=== PATIENT | male | born 1930 | race Caucasian/White ===

== ENCOUNTER 2016-07-07 12:33 | Emergency (ER) | payer OTHER, BC ==
[2016-07-07 12:45] VITALS: TEMP 98.6; BMI 33.9
[2016-07-07] MEDS ORDERED: ONDANSETRON 4 MG/2 ML VIAL IVPUSH ONE (13:25)
--- NOTE | 2016-07-07 13:25 | PDOC ---
History of Present Illness <Tommie Allison - Last Filed: 07/07/16 15:18> - General History Source: Patient Exam Limitations: No Limitations - History of Present Illness Initial Comments: 85 yo M history CKD presents with N/V/D x1 day. He states that he was vomiting overnight, which has resolved, but now having loose stools. He took "Emetrol" for the vomiting, which helped. He took imodium and pepto bismol today, and since then his stools are dark. He has had less diarrhea, but is still feeling unwell. No fever, abdominal pain, recent illness. <Peyton Bernard - Last Filed: 07/07/16 16:02> - General Chief Complaint: Vomiting/Diarrhea Stated Complaint: DIARRHEA, LOSS OF APPETITE Time Seen by Provider: 07/07/16 13:18 Past History <Tommie Allison - Last Filed: 07/07/16 15:18> - Past Medical History Anemia: No Asthma: No Cancer: No Cardiac Disorders: Yes (CAD,) CVA: No COPD: No CHF: No Dementia: No Diabetes: Yes GI Disorders: Yes (DIVERTICULAR DISEASE) Disorders: Yes (BLADDER STONE) HTN: Yes Hypercholesterolemia: Yes Liver Disease: No Seizures: No Thyroid Disease: No - Surgical History Abdominal Surgery: No Appendectomy: No Cardiac Surgery: Yes (ANGIOPLASTY WITH 1) Cholecystectomy: No Lung Surgery: No Neurologic Surgery: No Orthopedic Surgery: Yes (left hip replacement,right quadracep femorous) - Psycho/Social/Smoking Cessation Hx Suicidal Ideation: No Smoking History: Never smoked Have you smoked in the past 12 months: No If you are a former smoker, when did you quit?: 25YRS Information on smoking cessation initiated: No Hx Alcohol Use: Yes (occassional) Drug/Substance Use Hx: No Substance Use Type: Alcohol Hx Substance Use Treatment: No <Peyton Bernard - Last Filed: 07/07/16 16:02> - Past Medical History Allergies/Adverse Reactions: Allergies Allergy/AdvReac Type Severity Reaction Status Date / Time No Known Allergies Allergy Verified 07/07/16 12:45 Home Medications: Ambulatory Orders Apixaban [Eliquis -] 2.5 mg PO BID 07/07/16 Atenolol [Tenormin -] 25 mg PO DAILY 07/07/16 Cholecalciferol (Vitamin D3) [Vitamin D3 -] 1,000 unit PO TID 07/07/16 Clopidogrel Bisulfate [Plavix -] 75 mg PO DAILY 07/07/16 Ezetimibe [Zetia -] 10 mg PO DAILY 07/07/16 Famotidine [Pepcid] 20 mg PO DAILY 07/07/16 Fenofibrate Nanocrystallized [Fenofibrate] 145 mg PO DAILY 07/07/16 Ferrous Sulfate 325 mg PO DAILY 07/07/16 Folic Acid - 1 mg PO DAILY 07/07/16 Furosemide [Lasix -] 20 mg PO DAILY 07/07/16 Glipizide [Glucotrol -] 10 mg PO BID 07/07/16 Ketoconazole 2% Cream [Nizoral 2% Cream -] 1 applic TP DAILY 07/07/16 L.acidoph & Paracasei,B.lactis [Probiotic] 1 each PO DAILY 07/07/16 Losartan Potassium [Cozaar -] 12.5 mg PO DAILY 07/07/16 Multivitamins [Tab-A-Vit -] 1 tab PO DAILY 07/07/16 Nitroglycerin [Nitrostat] 0.4 mg SL PRN 07/07/16 [place]-3 Acid Ethyl Esters [Lovaza -] 4 gm PO DAILY 07/07/16 Rosuvastatin [Crestor -] 5 mg PO HS 07/07/16 Sitagliptin Phosphate [Januvia -] 25 mg PO ONCE 07/07/16 Review of Systems - Review of Systems Able to Perform ROS?: Yes Comments:: GENERAL/CONSTITUTIONAL: No fever or chills. No weakness. HEAD, EYES, EARS, NOSE AND THROAT: No change in vision. No ear pain or discharge. No sore throat. CARDIOVASCULAR: No chest pain or shortness of breath. RESPIRATORY: No cough, wheezing, or hemoptysis. GASTROINTESTINAL: +Vomiting (resolved). +Diarrhea. No constipation. GENITOURINARY: No dysuria, frequency, or change in urination. MUSCULOSKELETAL: No joint or muscle swelling or pain. No neck or back pain. SKIN: No rash NEUROLOGIC: No headache, vertigo, loss of consciousness, or change in strength/ sensation. ENDOCRINE: No increased thirst. No abnormal weight change. HEMATOLOGIC/LYMPHATIC: No anemia, easy bleeding, or history of blood clots. ALLERGIC/IMMUNOLOGIC: No hives or skin allergy. <Peyton Bernard - Last Filed: 07/07/16 16:02> *Physical Exam - Vital Signs Last Vital Signs Temp Pulse Resp BP Pulse Ox 98.6 F 82 18 116/58 97 07/07/16 12:42 07/07/16 12:42 07/07/16 12:42 07/07/16 12:42 07/07/16 12:42 <Tommie Allisone - Last Filed: 07/07/16 15:18> - Vital Signs Last Vital Signs Temp Pulse Resp BP Pulse Ox 98.6 F 82 18 116/58 97 07/07/16 12:42 07/07/16 12:42 07/07/16 12:42 07/07/16 12:42 07/07/16 12:42 - Physical Exam Comments: GENERAL: Awake, alert, and fully oriented, in no acute distress HEAD: No signs of trauma EYES: PERRLA, EOMI, sclera anicteric, conjunctiva clear ENT: Auricles normal inspection, hearing grossly normal, nares patent, oropharynx clear without exudates. Dry mucosa. NECK: Normal ROM, supple, no lymphadenopathy, JVD, or masses LUNGS: Breath sounds equal, clear to auscultation bilaterally. No wheezes, and no crackles HEART: Regular rate and rhythm, normal S1 and S2, no murmurs, rubs or gallops ABDOMEN: Soft, nontender, hyperactive bowel sounds. No guarding, no rebound. No masses EXTREMITIES: Normal range of motion, no edema. No clubbing or cyanosis. No cords, erythema, or tenderness NEUROLOGICAL: Cranial nerves II through XII grossly intact. Normal speech, normal gait SKIN: Warm, Dry, normal turgor, no rashes or lesions noted. <Peyton Bernard - Last Filed: 07/07/16 16:02> ED Treatment Course - LABORATORY CBC & Chemistry Diagram: 07/07/16 13:40 07/07/16 13:40 - ADDITIONAL ORDERS Additional order review: Laboratory Results 07/07/16 13:40 Sodium 141 Potassium 4.5 Chloride 105 Carbon Dioxide 24 Anion Gap 12 BUN 58 H Creatinine 2.1 H D Creat Clearance w eGFR 30.24 Random Glucose 158 H Calcium 8.5 Total Bilirubin 0.3 D AST 21 D ALT 19 Alkaline Phosphatase 23 L Total Protein 6.7 Albumin 3.1 L Lipase 113 07/07/16 13:40 RBC 4.18 MCV 91.7 MCHC 32.6 RDW 14.2 MPV 8.7 Neutrophils % Y Lymphocytes % Y - Medications Given in the ED: ED Medications Discontinued Medications Generic Name Dose Route Start Last Admin Trade Name Jeny PRN Reason Stop Dose Admin Sodium Chloride 500 mls @ 500 mls/hr 07/07/16 13:26 07/07/16 13:59 Normal Saline - IV 07/07/16 14:25 500 mls/hr ASDIR STA Administration Ondansetron HCl 4 mg 07/07/16 13:25 07/07/16 13:59 Zofran Injection IVPUSH 07/07/16 13:26 4 mg ONCE ONE Administration <Tommie Allison - Last Filed: 07/07/16 15:18> - LABORATORY CBC & Chemistry Diagram: 07/07/16 13:40 07/07/16 13:40 <Peyton Bernard - Last Filed: 07/07/16 16:02> Medical Decision Making - Medical Decision Making 07/07/16 15:10 Dr. Mariah Amaral was called regarding the patient at 3:09pm Dr. Rivera was consulted regarding the patient at 3:12pm [phone] <Tommie Allison - Last Filed: 07/07/16 15:18> - Medical Decision Making Pt improved with IV fluids. I discussed his CMP with Dr. Bautista, and according to her charts at the office, his last creatinine was 2.0. We discussed whether he required admission or not- he reports feeling better and would like to go home. On my assessment he is well-appearing with no signs of acute abdomen. She recommended that he skip lasix today and tomorrow, follow up with her in the office. <Peyton Bernard - Last Filed: 07/07/16 16:02> *DC/Admit/Observation/Transfer <Tommie Allison - Last Filed: 07/07/16 15:18> - Discharge Dispostion Admit: No <Peyton Bernard - Last Filed: 07/07/16 16:02> Diagnosis at time of Disposition: Dehydration, Vomiting and diarrhea, Chronic kidney disease - Discharge Dispostion Disposition: HOME Condition at time of disposition: Improved - Referrals Referrals: Mariah Bautista MD [Primary Care Provider] - - Patient Instructions Printed Discharge Instructions: DI for Diarrhea and Traveler's Diarrhea -- Adult, DI for Vomiting -- Adult Additional Instructions: SKIP LASIX TODAY AND TOMORROW. FOLLOW UP WITH DR. BAUTISTA THIS WEEK.
[2016-07-07] MEDS ORDERED: SODIUM CHLORIDE 500 ML IV STA (13:26)
[2016-07-07] MEDS ORDERED: ONDANSETRON 4 MG/2 ML VIAL ONE (13:53)
[2016-07-07 13:54] LABS: MCH 29.9 pg (25.7-33.7); MCHC 32.6 g/dl (32.0-35.9); MEAN CELL VOLUME 91.7 fl (80-96); MEAN PLT VOLUME 8.7 fl (7.5-11.1); PLATELET COUNT 206 K/MM3 (134-434); RDW 14.2 % (11.9-15.9); WHITE BLOOD COUNT 5.2 K/mm3 (4.0-10.0)
[2016-07-07 14:20] LABS: ALBUMIN 3.1 g/dl (3.4-5.0); BILIRUBIN,TOTAL 0.3 mg/dL (0.2-1.0); CALCIUM 8.5 mg/dL (8.5-10.1); CREATININE 2.1 mg/dL (0.7-1.3); TOT PROT 6.7 g/dl (6.4-8.2)
[2016-07-07 15:15] LABS: PLATELET ESTIMATE ADEQUATE (NORMAL)
[2016-07-07 15:24] VITALS: BP 107/60; PULSE 81
== END 2016-07-07 15:29 | disposition home or self-care (01) ==
LOC: JER 12:33
PROC: 3E0337Z Introduction of Electrolytic and Water Balance Substance into Peripheral Vein, Percutaneous Approach (ICD-10-PCS; principal; 2016-07-07)
PROC: 3E033GC Introduction of Other Therapeutic Substance into Peripheral Vein, Percutaneous Approach (ICD-10-PCS; 2016-07-07)
DX: E86.0 Dehydration (principal); I13.10 Hypertensive heart and chronic kidney disease without heart failure, with stage 1 through stage 4 chronic kidney disease, or unspecified chronic kidney disease; N18.9 Chronic kidney disease, unspecified; Z95.5 Presence of coronary angioplasty implant and graft; E11.9 Type 2 diabetes mellitus without complications; Z79.84 Long term (current) use of oral hypoglycemic drugs; E78.00 Pure hypercholesterolemia, unspecified
CPT/HCPCS: 36415; 80053; 83690; 85025; 96361; 96374; 99283-25

== ENCOUNTER 2018-07-21 21:44 | Observation (INO) | payer OTHER, BC ==
--- NOTE | 2018-07-21 21:56 | PDOC ---
Rapid Medical Evaluation Medical Evaluation: Allergies Allergy/AdvReac Type Severity Reaction Status Date / Time No Known Allergies Allergy Verified 07/07/16 12:45 I have performed a brief in-person evaluation of this patient. The patient presents with a chief complaint of: Tripped over hole in road, falling on the left side; no head/neck trauma; is on Eliquis for Afib; no LOC; mentions feeling a bit lightheaded post fall Pertinent physical exam findings: +abrasion to dorsal surface of L hand, FROM of LUE and RUE; able to walk using his cane I have ordered the following: Basic labs, EKG The patient will proceed to the ED for further evaluation. 07/21/18 21:50 Discharge Disposition - Referrals Referrals: Mariah Bautista MD [Primary Care Provider] - - Patient Instructions - Post Discharge Activity
--- NOTE | 2018-07-22 02:36 | PDOC ---
History of Present Illness - General Chief Complaint: Injury Stated Complaint: FELL HBP HIGH Time Seen by Provider: 07/21/18 21:49 - History of Present Illness Initial Comments: The patient is an 87M w/ a history of CAD s/p stent, A-fib (eliquis), T2DM, HTN , HLD, COPD who presents for evaluation s/p mechanical fall from standing. The patient states that he was walking down his driveway when he fell 2/2 uneven footing. The patient fell onto his left side but denies hitting his head and denies LOC. The patient endorses left hand pain and skin tear. He also reports a left knee abrasion and left elbow abrasion. All wound were treated prior to arrival by his daughter who is a nurse. Patient ambulated immediately after the fall. Pt also reports substernal chest pressure, non-radiating, began after his fall, and has improved but not resolved upon arrival. Denies fevers/chills, [place], vision changes, SOB, abdominal pain, N/V/C/D, dysuria , or changes in sensation 07/22/18 04:57 Past History - Past Medical History Allergies/Adverse Reactions: Allergies Allergy/AdvReac Type Severity Reaction Status Date / Time No Known Allergies Allergy Verified 07/21/18 21:53 Home Medications: Ambulatory Orders Apixaban [Eliquis -] 2.5 mg PO BID 07/07/16 Atenolol [Tenormin -] 25 mg PO DAILY 07/07/16 Cholecalciferol (Vitamin D3) [Vitamin D3 -] 1,000 unit PO TID 07/07/16 Clopidogrel Bisulfate [Plavix -] 75 mg PO DAILY 07/07/16 Ezetimibe [Zetia -] 10 mg PO DAILY 07/07/16 Famotidine [Pepcid] 20 mg PO DAILY 07/07/16 Fenofibrate Nanocrystallized [Fenofibrate] 145 mg PO DAILY 07/07/16 Ferrous Sulfate 325 mg PO DAILY 07/07/16 Folic Acid - 1 mg PO DAILY 07/07/16 Furosemide [Lasix -] 20 mg PO DAILY 07/07/16 Glipizide [Glucotrol -] 10 mg PO BID 07/07/16 Ketoconazole 2% Cream [Nizoral 2% Cream -] 1 applic TP DAILY 07/07/16 L.acidoph,Paracasei, B.lactis [Probiotic] 1 each PO DAILY 07/07/16 Losartan Potassium [Cozaar -] 12.5 mg PO DAILY 07/07/16 Multivitamins [Tab-A-Vit -] 1 tab PO DAILY 07/07/16 Nitroglycerin [Nitrostat] 0.4 mg SL PRN 07/07/16 [place]-3 Acid Ethyl Esters [Lovaza -] 4 gm PO DAILY 07/07/16 Rosuvastatin [Crestor -] 5 mg PO HS 07/07/16 Sitagliptin Phosphate [Januvia -] 25 mg PO ONCE 07/07/16 Anemia: No Asthma: No Cancer: No Cardiac Disorders: Yes (CAD,A-FIB) CVA: No COPD: No CHF: No Dementia: No Diabetes: Yes GI Disorders: Yes (DIVERTICULAR DISEASE) Disorders: Yes (BLADDER STONE) HTN: Yes Hypercholesterolemia: Yes Liver Disease: No Seizures: No Thyroid Disease: No - Surgical History Abdominal Surgery: No Appendectomy: No Cardiac Surgery: Yes (ANGIOPLASTY WITH 1) Cholecystectomy: No Lung Surgery: No Neurologic Surgery: No Orthopedic Surgery: Yes (left hip replacement,right quadracep femorous) - Suicide/Smoking/Psychosocial Hx Smoking History: Never smoked Have you smoked in the past 12 months: No If you are a former smoker, when did you quit?: 25YRS Hx Alcohol Use: Yes (occassional) Drug/Substance Use Hx: No Substance Use Type: Alcohol Hx Substance Use Treatment: No Review of Systems - Review of Systems Able to Perform ROS?: Yes Comments:: GENERAL/CONSTITUTIONAL: No fever or chills. No weakness HEAD, EYES, EARS, NOSE AND THROAT: No change in vision. No ear pain or discharge. No sore throat CARDIOVASCULAR: No shortness of breath RESPIRATORY: Denies cough, hemoptysis GASTROINTESTINAL: No nausea, vomiting, diarrhea or constipation GENITOURINARY: No dysuria, frequency, or change in urination MUSCULOSKELETAL: per HPI SKIN: No rash NEUROLOGIC: No headache, vertigo, loss of consciousness, or change in strength/ sensation ENDOCRINE: No increased thirst. No abnormal weight change HEMATOLOGIC/LYMPHATIC: No anemia, easy bleeding, or history of blood clots ALLERGIC/IMMUNOLOGIC: No hives or skin allergy 07/22/18 05:02 Is the patient limited [place] proficient: No *Physical Exam - Vital Signs Last Vital Signs Temp Pulse Resp BP Pulse Ox 98.5 F 60 18 151/61 98 07/21/18 21:50 07/21/18 21:50 07/21/18 21:50 07/21/18 21:50 07/21/18 21:50 - Physical Exam Comments: GENERAL: Awake, alert, and fully oriented, in no acute distress HEAD: No signs of trauma, normocephalic, atraumatic EYES: PERRLA, EOMI, sclera anicteric, conjunctiva clear ENT: Hearing grossly normal, nares patent, oropharynx clear without exudates. Moist mucosa LUNGS: No distress, speaks full sentences, clear to auscultation bilaterally HEART: Regular rate and rhythm, normal S1 and S2, no murmurs appreciated, peripheral pulses normal and equal bilaterally ABDOMEN: Soft, nontender, normoactive bowel sounds. No guarding, no rebound EXTREMITIES : L volar hand abrasion and skin tear over 5th metacarpal, L lateral knee abrasion w/o underlying hematoma and no joint effusion, L lateral elbow abrasion w/o underlying hematoma. No knee or elbow laxity. No obvious deformity. FROM in all joints. NEUROLOGICAL: Cranial nerves II through XII grossly intact. Normal speech, no focal sensorimotor deficits SKIN: Warm, Dry 07/22/18 05:03 Moderate Sedation - Procedure Monitoring Vital Signs: Procedure Monitoring Vital Signs Temperature 98.5 F 07/21/18 21:50 Pulse Rate 60 07/21/18 21:50 Respiratory Rate 18 07/21/18 21:50 Blood Pressure 151/61 07/21/18 21:50 O2 Sat by Pulse Oximetry (%) 98 07/21/18 21:50 ED Treatment Course - LABORATORY CBC & Chemistry Diagram: 07/22/18 02:33 07/22/18 02:33 - RADIOLOGY Radiology Studies Ordered: Category Date Time Status ANKLE & FOOT-LEFT* [RAD] Stat Radiology 07/22/18 01:38 Ordered ELBOW-LEFT [RAD] Stat Radiology 07/22/18 01:37 Ordered KNEE 3 POS-LEFT [RAD] Stat Radiology 07/22/18 01:37 Ordered WRIST W/HAND-LEFT* [RAD] Stat Radiology 07/22/18 01:37 Ordered Medical Decision Making - Medical Decision Making The patient is a 87M w/ a history of CAD s/p stent (plavix/eliquis), s/p pacemaker, T2DM, HTN, HLD, and COPD who presents for evaluation s/p mechanical fall from standing. Additionally, the patient reports non-radiating substernal chest pressure. Ddx: injury 2/2 trauma, ACS r/o ED Course Plain films CMP, CBC, Trop I ECG, CXR 07/22/18 04:06 ECG w/ paced rhythm at 109 Initial Trop I neg No leukocytosis No anemia Cr elevated 2.4, near baseline LFTs wnl Plan for admission for ACS r/o Patient admitted to obs for ACS r/o Imaging pending Dispo: admit 07/22/18 05:06 *DC/Admit/Observation/Transfer Diagnosis at time of Disposition: ACS (acute coronary syndrome) Fall Qualifiers: Encounter type: initial encounter Qualified Code(s): W19.XXXA - Unspecified fall, initial encounter - Referrals Referrals: Mariah Bautista MD [Primary Care Provider] - - Patient Instructions - Post Discharge Activity
[2018-07-22 02:45] LABS: BASO % 0.5 % (0-2.0); HEMATOCRIT 35.1 % (35.4-49); HEMOGLOBIN 12.1 GM/dL (11.7-16.9); LYMPH % 19.4 % (8-40); MCH 31.4 pg (25.7-33.7); MCHC 34.5 g/dl (32.0-35.9); MEAN CELL VOLUME 91.1 fl (80-96); MONO % 10.9 % (3.8-10.2); NEUT % 65.2 % (42.8-82.8); PLATELET COUNT 244 K/MM3 (134-434); RBC 3.85 M/mm3 (4.00-5.60); RDW 14.1 % (11.9-15.9); WHITE BLOOD COUNT 6.3 K/mm3 (4.0-10.0)
[2018-07-22 03:09] LABS: ALBUMIN 3.4 g/dl (3.4-5.0); ALK PHOS 31 U/L (45-117); ANION GAP 5 MMOL/L (8-16); BILIRUBIN,TOTAL 0.2 mg/dL (0.2-1); BLOOD UREA NITROGEN 74 mg/dL (7-18); CALCIUM 10.2 mg/dL (8.5-10.1); CHLORIDE 105 mmol/L (98-107); CO2 31 mmol/L (21-32); CREATININE 2.4 mg/dL (0.55-1.3); GLUCOSE,RANDOM 129 mg/dL (74-106); POTASSIUM 4.8 mmol/L (3.5-5.1); SGOT/AST 15 U/L (15-37); SGPT/ALT 22 U/L (13-61); SODIUM 141 mmol/L (136-145); TOT PROT 6.9 g/dl (6.4-8.2)
--- NOTE | 2018-07-22 03:46 | PDOC ---
Attending Attestation - HPI HPI: 07/22/18 03:46 The patient is a 87 year old male, with a significant past medical history of CAD (s/p stenting and pacemaker implantation), Afib, DM, HTN, HLD, who presents to the emergency department s/p mechanical fall. As per patient, he was walking to the car when he tripped and fell onto his left side (accident was recorded on home surveillance). The patient endorses diffuse abrasions to his left pérez and left arm, without pain or swelling. Patient was able to ambulate s/p fall. Patient tested his blood pressure after the fall and noted it being elevated, prompting her arrival. While in the waiting room, patient notes an episode of chest tightness which has since resolved. He denies any LOC or trauma to the head/neck. He denies any recent fevers, chills, headache or dizziness. He denies any recent nausea, vomit, diarrhea or constipation. He denies any recent palpitation, diaphoresis, or shortness of breath. He denies any recent dysuria, frequency, urgency or hematuria. Allergies: NKA Primary Care Physician: Dr. Bautista <Eduarda Miller - Last Filed: 07/22/18 03:47> - Resident Resident Name: Guy Jackson - ED Attending Attestation I have performed the following: I have examined & evaluated the patient, The case was reviewed & discussed with the resident, I agree w/resident's findings & plan - Physicial Exam PE: Agree with resident exam 07/22/18 04:14 - Medical Decision Making 07/22/18 04:18 87-year-old male status post mechanical fall witnessed by security surveillance Patient admits to chest tightness while waiting to be seen in the emergency department EKG shows a paced rhythm Due to history of coronary artery disease, patient's age and an elevated blood pressure at home he will be held for observation and serial enzymes He has mild abrasions with no head trauma, tenderness to the chest abdomen or pelvis At this time imaging is not indicated Impression mechanical fall Chest tightness CAD multiple abrasions on <Meg Rose - Last Filed: 07/22/18 04:21> Attestations - Attestations 07/22/18 03:47 Documentation prepared by Nirvannie Goberdan, acting as medical technologist hematology for Meg Rose DO. <Eduarda Miller - Last Filed: 07/22/18 03:47>
[2018-07-22] MEDS ORDERED: NITROGLYCERIN SUBLINGUAL 1/150 0.4 MG TAB SL PRN (05:45)
[2018-07-22] MEDS: CHOLECALCIFEROL (VITAMIN D3) 1,000 UNIT TABLET (FP) PO SCH ×2 (06:07→13:52)
[2018-07-22] MEDS: glipiZIDE 5 MG TABLET (FP) PO SCH ×2 (08:02→17:09)
[2018-07-22 09:16] VITALS: BMI 32.4
--- NOTE | 2018-07-22 09:41 | HP ---
Admitting History and Physical - Primary Care Physician PCP: Mariah Bautista - Admission Chief Complaint: fall History of Present Illness: Twisted his left ankle and fell on the street last evening, was able to get up, but afterwards felt lightheaded so came to er. In the er while waiting developed chest pain across his chest, while he was quite aggravated. Now feels fine. History Source: Patient Limitations to Obtaining History: No Limitations - Past Medical History Cardiovascular: Yes: AFIB, CAD (RCA stent 2005, RCA stent 2011), HTN, Hyperlipdemia Pulmonary: Yes: COPD, Sleep Apnea (on home CPAP) Gastrointestinal: Yes: Diverticulitis (2011), Other (colonic polyps) Renal/: Yes: Renal Inusuff Rheumatology: Yes: Gout Endocrine: Yes: Diabetes Mellitus Dermatology: Yes: Melanoma (L earlobe 2012), Squamous Cell (R eyelid 2012) - Past Surgical History Past Surgical History: Yes: Joint Replacement (L THR 2009), Permanent Pacemaker ([employer] 2013) - Advance Directives Advance Directives: Yes: Health Care Proxy - Smoking History Smoking history: Never smoked Have you smoked in the past 12 months: No If you are a former smoker, when did you quit?: 25YRS - Alcohol/Substance Use Hx Alcohol Use: Yes (occassional) - Social History ADL: Independent History of Recent Travel: No Home Medications - Allergies Allergies/Adverse Reactions: Allergies Allergy/AdvReac Type Severity Reaction Status Date / Time No Known Allergies Allergy Verified 07/21/18 21:53 - Home Medications Home Medications: Ambulatory Orders Apixaban [Eliquis -] 2.5 mg PO BID 07/07/16 Atenolol [Tenormin -] 25 mg PO DAILY 07/07/16 Cholecalciferol (Vitamin D3) [Vitamin D3 -] 1,000 unit PO TID 07/07/16 Clopidogrel Bisulfate [Plavix -] 75 mg PO DAILY 07/07/16 Ezetimibe [Zetia -] 10 mg PO DAILY 07/07/16 Famotidine [Pepcid] 20 mg PO DAILY 07/07/16 Fenofibrate Nanocrystallized [Fenofibrate] 145 mg PO DAILY 07/07/16 Ferrous Sulfate 325 mg PO DAILY 07/07/16 Folic Acid - 1 mg PO DAILY 07/07/16 Furosemide [Lasix -] 20 mg PO DAILY 07/07/16 Glipizide [Glucotrol -] 10 mg PO BID 07/07/16 L.acidoph,Paracasei, B.lactis [Probiotic] 1 each PO DAILY 07/07/16 Losartan Potassium [Cozaar -] 12.5 mg PO DAILY 07/07/16 Multivitamins [Tab-A-Vit -] 1 tab PO DAILY 07/07/16 [place]-3 Acid Ethyl Esters [Lovaza -] 4 gm PO DAILY 07/07/16 Rosuvastatin [Crestor -] 5 mg PO HS 07/07/16 Family Disease History - Family Disease History Family History: Unremarkable Review of Systems - Review of Systems Constitutional: reports: No Symptoms Eyes: reports: No Symptoms HENT: reports: No Symptoms Neck: reports: No Symptoms Cardiovascular: reports: No Symptoms Respiratory: reports: No Symptoms Gastrointestinal: reports: Diarrhea (chronic) Genitourinary: reports: No Symptoms Musculoskeletal: reports: Back Pain (chronic), Joint Pain Neurological: reports: No Symptoms Endocrine: reports: No Symptoms Pain Intensity: 0 Physical Examination Vital Signs: Vital Signs Temperature 98.5 F 07/22/18 08:36 Pulse Rate 68 07/22/18 08:36 Respiratory Rate 18 07/22/18 08:36 Blood Pressure 138/65 07/22/18 08:36 O2 Sat by Pulse Oximetry (%) 98 07/22/18 08:36 Constitutional: Yes: Well Nourished, Calm Eyes: Yes: Conjunctiva Clear, EOM Intact HENT: Yes: Normocephalic Neck: Yes: Trachea Midline Cardiovascular: Yes: Regular Rate and Rhythm, Other (PPM in place) Respiratory: Yes: CTA Bilaterally Gastrointestinal: Yes: Normal Bowel Sounds, Soft ...Rectal Exam: Yes: Other (chronic gluteal irritation extending to perineum wiith areas of skin erosions) Musculoskeletal: Yes: Back Pain, Joint Stiffness (chronic) Extremities: Yes: Other Edema: LLE: 1+, RLE: Trace Peripheral Pulses WNL: Yes Integumentary: Yes: Other (skin tears over left knee, left hand and left elbow, clean, non-bleeding) Neurological: Yes: WNL Labs: CBC, BMP 07/22/18 02:33 07/22/18 02:33 one set of troponin negative Imaging - Results Chest X-ray: Report Reviewed X-ray: Report Reviewed (xray ankle knee wrist without fracture) Problem List - Problems (1) Chest pain Code(s): R07.9 - CHEST PAIN, UNSPECIFIED Qualifiers: Chest pain type: unspecified Qualified Code(s): R07.9 - Chest pain, unspecified (2) Fall Code(s): W19.XXXA - UNSPECIFIED FALL, INITIAL ENCOUNTER Qualifiers: Encounter type: initial encounter Qualified Code(s): W19.XXXA - Unspecified fall, initial encounter (3) CAD (coronary artery disease) Code(s): I25.10 - ATHSCL HEART DISEASE OF [place] CORONARY ARTERY W/O ANG PCTRS Qualifiers: Coronary Disease-Associated Artery/Lesion type: platinum artery Associated angina: without angina (4) CKD (chronic kidney disease) Code(s): N18.9 - CHRONIC KIDNEY DISEASE, UNSPECIFIED Qualifiers: Chronic kidney disease stage: stage 3 (moderate) Qualified Code(s): N18.3 - Chronic kidney disease, stage 3 (moderate) (5) Diabetes mellitus Code(s): E11.9 - TYPE 2 DIABETES MELLITUS WITHOUT COMPLICATIONS Qualifiers: Diabetes mellitus type: type 2 Diabetes mellitus intermediate insulin use: without intermediate use Diabetes mellitus complication status: with kidney complications Diabetes mellitus complication detail: with chronic kidney disease Chronic kidney disease stage: stage 3 (moderate) Qualified Code(s): E11.22 - Type 2 diabetes mellitus with diabetic chronic kidney disease; N18.3 - Chronic kidney disease, stage 3 (moderate) (6) HTN (hypertension) Code(s): I10 - ESSENTIAL (PRIMARY) HYPERTENSION Qualifiers: Hypertension type: essential hypertension Qualified Code(s): I10 - Essential (primary) hypertension Assessment/Plan repeat cardiac enzyme check echo pt eval if remains stable dc home with vns and close outpt f/up
[2018-07-22] MEDS ORDERED: FENOFIBRIC ACID 135 MG CAP PO SCH (10:00)
[2018-07-22] MEDS ORDERED: ATENOLOL 25 MG TABLET (FP) PO SCH (10:00)
[2018-07-22] MEDS ORDERED: FERROUS SO4 325 MG TABLET (FP) PO SCH (10:00)
[2018-07-22] MEDS ORDERED: RANITIDINE HCL 150 MG TABLET (FP) PO SCH (10:00)
[2018-07-22] MEDS ORDERED: EZETIMIBE 10 MG TABLET (FP) PO SCH (10:00)
[2018-07-22] MEDS ORDERED: MULTIVITAMINS (DAILY MVI) TABLET (FP) PO SCH (10:00)
[2018-07-22] MEDS ORDERED: ZINC OXIDE 20% TOPICAL OINTMENT 30 GM TUBE TP SCH (10:00)
[2018-07-22] MEDS ORDERED: APIXABAN 2.5 MG TABLET PO SCH (10:00)
[2018-07-22] MEDS ORDERED: OMEGA-3 ACID ETHYL ESTERS (FATTY-ACIDS) 1 GM CAPSULE (FP) PO SCH (10:00)
[2018-07-22] MEDS ORDERED: CLOPIDOGREL BISULFATE 75 MG TABLET (FP) PO SCH (10:00)
[2018-07-22] MEDS ORDERED: LACTOBACILLUS ACIDOPHILUS 1 TABLET PO SCH (10:00)
[2018-07-22] MEDS ORDERED: FOLIC ACID 1 MG TABLET (FP) PO SCH (10:00)
--- NOTE | 2018-07-22 11:55 | EKG ---
Test Reason : Blood Pressure : / mmHG Vent. Rate : 109 BPM Atrial Rate : 068 BPM P-R Int : 000 ms QRS Dur : 020 ms QT Int : 186 ms P-R-T Axes : 000 240 260 degrees QTc Int : 250 ms ventricular-paced complexes Confirmed by MAIRA SHELTON MD ([id number]) on 07/22/2018 11:55:38 AM Referred By: Confirmed By:MAIRA SHELTON MD
[2018-07-22 15:04] VITALS: BP 113/52; PULSE 60; TEMP 97.5
--- NOTE | 2018-07-22 15:23 | ECHO ---
Name: MCKENZIE PABLO Exam:Adult Echocardiogram Study Date: 07/22/2018 11:18 AM Age: 87 yrs Reason For Study: IVSF Height: 73 in Weight: 259 lb BSA: 2.4 m2 MMode/2D Measurements & Calculations IVSd: 1.1 cm Ao root diam: 3.5 cm LVIDd: 5.7 cm LA dimension: 4.7 cm LVIDs: 3.3 cm ACS: 1.0 cm LVPWd: 1.1 cm IVSs: 1.5 cm LVPWs: 1.5 cm EDV(Teich): 162.5 ml ESV(Teich): 44.6 ml LVOT diam: 2.0 cm Doppler Measurements & Calculations MV E max ashutosh: 125.1 cm/sec Ao V2 max: 208.4 cm/sec MV A max ashutosh: 38.3 cm/sec Ao max P.4 mmHg MV E/A: 3.3 Ao V2 mean: 151.0 cm/sec Ao mean P.4 mmHg Ao V2 VTI: 47.8 cm KANDICE(I,D): 1.3 cm2 AI P1/2t: 491.0 msec KANDICE(V,D): 1.5 cm2 AI max ashutosh: 304.1 cm/sec LV V1 max P.7 mmHg AI max P.3 mmHg LV V1 mean P.1 mmHg AI dec slope: 181.4 cm/sec2 LV V1 max: 96.7 cm/sec LV V1 mean: 69.0 cm/sec LV V1 VTI: 19.6 cm MR max ashutosh: 511.7 cm/sec SV(LVOT): 64.5 ml MR max P.7 mmHg TR max ashutosh: 280.7 cm/sec TR max P.7 mmHg Procedure A complete two-dimensional transthoracic echocardiogram was performed (2D, M-mode, Doppler and color flow Doppler). The study was technically difficult with many images being suboptimal in quality. Left Ventricle The left ventricular size, thickness and function are normal. The left ventricular ejection fraction is normal. Ejection Fraction = 60-65%. Regional wall motion abnormalities cannot be excluded due to limi krissy visualization. Right Ventricle The right ventricle is normal in size and function. Atria Normal left and right atrial size and function. Mitral Valve There is no mitral regurgitation noted. Tricuspid Valve There is trace tricuspid regurgitation. Right ventricular systolic pressure is normal. Aortic Valve Mild valvular aortic stenosis. Trace aortic regurgitation. Pulmonic Valve The pulmonic valve is not well visualized. Great Vessels The aortic root is normal size. Pericardium/Pleura There is no pericardial effusion. Interpretation Summary The study was technically difficult with many images being suboptimal in quality. The left ventricular size, thickness and function are normal The right ventricle is normal in size and function. There is trace tricuspid regurgitation. Mild valvular aortic stenosis. Trace aortic regurgitation. MD Juan Pablo Callahan 07/22/2018 03:22 PM
[2018-07-22] MEDS ORDERED: ROSUVASTATIN CA 5 MG TABLET (FP) PO SCH (22:00)
--- NOTE | 2018-07-26 08:45 | DS ---
Physical Examination Vital Signs: Vital Signs Temperature 97.5 F L 07/22/18 16:58 Pulse Rate 60 07/22/18 16:58 Respiratory Rate 18 07/22/18 12:04 Blood Pressure 113/52 L 07/22/18 16:58 O2 Sat by Pulse Oximetry (%) 98 07/22/18 12:04 Labs: CBC, BMP 07/22/18 02:33 07/22/18 02:33 Discharge Summary Reason For Visit: DIABETES MELLITUS,ACUTE CORONARY SYNDROME, Hospital Course: Twisted his left ankle and fell on the street last evening, was able to get up, but afterwards felt lightheaded so came to er. In the er while waiting developed chest pain across his chest, while he was quite aggravated. Now feels fine. Monitoring uneventful, able to ambulate with PT. serial enzymes are negative, echo unremarkable, will f/up as oupt. - Instructions Diet, Activity, Other Instructions: Resume previous home meds Skin care: maintain dry, clean skin. Keep adhesive Versatel dressing over Left elbow, hand and knee. Mix Zinc Oxide cream with Extra protective Cream and apply to dry and clean groin, scrotum, sacrum and left buttock daily. Referrals: Mariah Bautista MD [Primary Care Provider] - Disposition: VNS/HOME HEALTH CARE - Home Medications Comprehensive Discharge Medication List: Ambulatory Orders Apixaban [Eliquis -] 2.5 mg PO BID 07/07/16 Atenolol [Tenormin -] 25 mg PO DAILY 07/07/16 Cholecalciferol (Vitamin D3) [Vitamin D -] 1,000 unit PO TID 07/07/16 Clopidogrel Bisulfate [Plavix -] 75 mg PO DAILY 07/07/16 Ezetimibe [Zetia -] 10 mg PO DAILY 07/07/16 Famotidine [Pepcid] 20 mg PO DAILY 07/07/16 Fenofibrate Nanocrystallized [Fenofibrate] 145 mg PO DAILY 07/07/16 Ferrous Sulfate 325 mg PO DAILY 07/07/16 Folic Acid - 1 mg PO DAILY 07/07/16 Furosemide [Lasix -] 20 mg PO DAILY 07/07/16 Glipizide [Glucotrol -] 10 mg PO BID 07/07/16 L.acidoph,Paracasei, B.lactis [Probiotic] 1 each PO DAILY 07/07/16 Losartan Potassium [Cozaar -] 12.5 mg PO DAILY 07/07/16 Multivitamins [Multivit ([facility] Formulary)] 1 tab PO DAILY 07/07/16 Selma-3 Acid Ethyl Esters [Lovaza -] 4 gm PO DAILY 07/07/16 Rosuvastatin [Crestor -] 5 mg PO HS 07/07/16 Zinc Oxide 1 applic TP BID tube 07/22/18
== END 2018-07-22 18:20 | disposition home health service (06) ==
LOC: JER 21:44 → JERBED 07-22 04:54 → J4W 07-22 08:30
PROVIDERS: ADMIT Internal Medicine; ATTEND Internal Medicine
DX: I24.9 Acute ischemic heart disease, unspecified (principal); R07.89 Other chest pain; E11.22 Type 2 diabetes mellitus with diabetic chronic kidney disease; I12.9 Hypertensive chronic kidney disease with stage 1 through stage 4 chronic kidney disease, or unspecified chronic kidney disease; N18.3 Chronic kidney disease, stage 3 (moderate); I48.91 Unspecified atrial fibrillation; R07.9 Chest pain, unspecified; I25.10 Atherosclerotic heart disease of native coronary artery without angina pectoris; E78.5 Hyperlipidemia, unspecified; J44.9 Chronic obstructive pulmonary disease, unspecified; Z95.0 Presence of cardiac pacemaker; Z79.01 Long term (current) use of anticoagulants; Z95.5 Presence of coronary angioplasty implant and graft; W01.0XXA Fall on same level from slipping, tripping and stumbling without subsequent striking against object, initial encounter; Z91.81 History of falling; Y93.01 Activity, walking, marching and hiking; Y92.488 Other paved roadways as the place of occurrence of the external cause
CPT/HCPCS: 36415; 71045-TC-FY; 73070-TC-LT-FY; 73110-TC-LR-FY; 73130-TC-LT-FY; 73562-TC-LT-FY; 73610-TC-LT-FY; 73630-TC-LT; 80053; 82550; 84484; 85025; 93005; 93010; 93306-TC; 97116-GP; 97161-GP; 99285-25; G0378

== ENCOUNTER 2020-08-29 13:01 | Emergency (ER) | payer OTHER, BC ==
[2020-08-29 13:08] VITALS: BMI 28.3
[2020-08-29] MEDS ORDERED: DIPHTH,PERTUSS(ACELL),TET 0.5 ML DISP.SYRIN IM ONE ×2 (15:00→15:06)
[2020-08-29] MEDS ORDERED: BACITRACIN 0.9 GM PACKET ONE (16:20)
[2020-08-29 16:40] VITALS: BP 133/58; PULSE 62; TEMP 97.8
== END 2020-08-29 16:40 | disposition home or self-care (01) ==
LOC: JER 13:01
PROC: 3E0234Z Introduction of Serum, Toxoid and Vaccine into Muscle, Percutaneous Approach (ICD-10-PCS; principal; 2020-08-29)
DX: S00.03XA Contusion of scalp, initial encounter (principal); E04.1 Nontoxic single thyroid nodule
CPT/HCPCS: 70450-TC; 72125-TC; 90715; 99284-25